=== PATIENT | female | born 1955 ===

== ENCOUNTER 2017-10-21 15:23 | Emergency (ER) | payer MEDICAID ==
[2017-10-21 15:35] VITALS: O2SAT 100
--- NOTE | 2017-10-21 16:10 | ED PDOC ---
Upper Extremity Pain/Injury Chief Complaint (Provider): bilateral/multiple joint pain Additional Complaint(s): 61 y/o female with PMHx HTN, prediabetes presents to ED complaining of bilateral , multiple joint pain involving shoulders, elbows, wrist, and knees for 6 months. Pain is intermittent, starts after period of inactivity, improves with activities, not taking any pain medication at this time. Also reports morning stiffness, which lasts 1 1/2 hours. Denies swelling, redness, warm to touch of overlying skin. Patient states she went to see her PCP for her joint pain, who referred her to a Information Officer, Dr. Silva. She has a first appointment with Dr. Silva scheduled for November 15. PMD: Dr. Jeter <Alexsandra Weaver - Last Filed: 10/21/17 17:27> <Brenda Zapata - Last Filed: 10/21/17 17:42> Time Seen by Provider: 10/21/17 15:40 Chief Complaint (Nursing): Fever Supervising Attending Note - Supervising Attending Note The Documented history was done by the: Physician Fur Joiner The documented physical exam was done by the: Physician Fur Joiner, Attending Physician - Attestation: I have personally seen and examined this patient.: Yes I have fully participated in the care of the patient.: Yes I have reviewed all pertinent clinical information: Yes - Notes: Notes:: Diffuse joint pain, no acute distress <Brenda Zapata - Last Filed: 10/21/17 17:42> Past Medical History Vital Signs: Last Vital Signs Temp 98.3 F 10/21/17 15:40 Pulse 89 10/21/17 15:32 Resp 20 10/21/17 15:32 BP 128/77 10/21/17 15:32 Pulse Ox 100 10/21/17 15:32 - Medical History PMH: HTN Other PMH: Prediabetes - Family History Family History: States: Unknown Family Hx - Social History Current smoker - smoking cessation education provided: No Ex-Smoker (has not smoked in the last 12 months): No Alcohol: None Drugs: Denies <Alexsandra Weaver - Last Filed: 10/21/17 17:27> Vital Signs: Last Vital Signs Temp 98.3 F 10/21/17 15:40 Pulse 89 10/21/17 15:32 Resp 20 10/21/17 15:32 BP 128/77 10/21/17 15:32 Pulse Ox 100 10/21/17 17:28 <Brenda Zapata - Last Filed: 10/21/17 17:42> - Home Medications Home Medications: Ambulatory Orders Medication Instructions Recorded Ibuprofen [Motrin Tab] 600 mg PO Q8 PRN #30 tab 10/21/17 - Allergies Allergies/Adverse Reactions: Allergies Allergy/AdvReac Type Severity Reaction Status Date / Time shrimp Allergy PAIN Verified 10/21/17 15:34 Review of Systems ROS Statement: Except As Marked, All Systems Reviewed And Found Negative (as per HPI) <Alexsandra Weaver - Last Filed: 10/21/17 17:27> Physical Exam - Reviewed Nursing Documentation Reviewed: Yes Vital Signs Reviewed: Yes - Physical Exam Appears: Positive for: Non-toxic, No Acute Distress Head Exam: Positive for: ATRAUMATIC, NORMOCEPHALIC Skin: Positive for: Normal Color, Warm, Dry Eye Exam: Positive for: Normal appearance ENT: Positive for: Normal ENT Inspection Neck: Positive for: Normal, Supple Respiratory: Positive for: Normal Breath Sounds. Negative for: Decreased Breath Sounds, Accessory Muscle Use, Crackles, Rales, Rhonchi, Wheezing, Respiratory Distress, Plerual Rub Gastrointestinal/Abdominal: Positive for: Bowel Sounds (present), Soft. Negative for: Tenderness, Distended, Guarding, Rebound Back: Positive for: Normal Inspection. Negative for: L CVA Tenderness, R CVA Tenderness Neurologic/Psych: Positive for: Alert, Oriented Comments: Joint assessment: no evidence of redness, swelling, or warmth sensation on PE, preserved ROM of upper/lower extremities, tenderness to palpation of both elbows <Alexsandra Weaver - Last Filed: 10/21/17 17:27> - ECG O2 Sat by Pulse Oximetry: 100 <Alexsandra Weaver - Last Filed: 10/21/17 17:27> Medical Decision Making Medical Decision Making: Joint pain -Multiple -could 2/2 RA vs SLE -Toradol 30 mg once -needs f/u with Rheumatology as outpatient for work up, diagnosis, and treatment case discussed with Dr. Zapata Re-evaluation -patient feels better -stable to discharge home on Ibuprofen PO for pain control, and recommended f/u with Rheumatology, and PCP. <Alexsandra Weaver - Last Filed: 10/21/17 17:27> Disposition - Patient ED Disposition Is Patient to be Admitted: No Discussed With DrRadu: Brenda Zapata - Disposition Disposition: Routine/Home Disposition Time: 17:17 <Alexsandra Weaver - Last Filed: 10/21/17 17:27> <Brenda Zapata - Last Filed: 10/21/17 17:42> - Clinical Impression Clinical Impression: Joint pain - Disposition Referrals: Richar Silva MD [Staff Provider] - Arslan Huerta MD [Family Provider] - Condition: IMPROVED Additional Instructions: F/U with PCP In 2-3 days. F/U with Rheumatology, Dr. Silva, as scheduled. Prescriptions: Ibuprofen [Motrin Tab] 600 mg PO Q8 PRN #30 tab PRN Reason: Pain, Moderate (4-7) Forms: [facility] (Kinyarwanda) Print Language: FRENCH
[2017-10-21 17:41] VITALS: BP 130/75; PULSE 75; RESP 14; TEMP 98
== END 2017-10-21 17:41 | disposition home or self-care (01) ==
LOC: H.ER 15:23
DX: M25.50 Pain in unspecified joint (principal); Z87.891 Personal history of nicotine dependence; I10 Essential (primary) hypertension; R73.03 Prediabetes
CPT/HCPCS: 96372; 99282; J1885